=== PATIENT | female | born 1955 | race Caucasian/White ===

== ENCOUNTER 2017-08-14 15:20 | Observation (INO) | payer OTHER ==
[~2017-08-14] VITALS: Ht 162.6 cm; Wt 89.3 kg
[2017-08-14 16:02] LABS: HEMATOCRIT 39.3 % (36.0-46.0); HEMOGLOBIN 13.5 G/DL (11.9-15.5); MCH 31.4 PG (29.0-34.0); MCHC 34.4 G/DL (30.0-36.0); MCV 91.4 FL (83-99); PLATELET COUNT 290 K/uL (156-360); RBC DIS.WIDTH-CV 11.7 % (11.8-14.6); RBC DIS.WIDTH-SD 39.3 % (39-53); WHITE BLOOD COUNT 9.4 K/uL (4.1-10.2)
[2017-08-14 16:14] LABS: CHLORIDE 107 mEq/L (99-109); POTASSIUM 3.8 mEq/L (3.7-5.4); SODIUM 141 mEq/L (136-147)
[2017-08-14 16:16] LABS: GLUCOSE 107 mg/dL (70-99)
[2017-08-14 16:20] LABS: CREATININE 0.8 mg/dL (0.6-1.3); GFR ESTIMATE (CALCULATED) > 59 mL/min/
[2017-08-14 16:21] LABS: UREA NITROGEN (BUN) 18 mg/dL (9-23)
[2017-08-14 16:30] LABS: TROP-I INTERPRETATION NEGATIVE; TROPONIN-I < 0.01 ng/mL (0.0-0.30)
[2017-08-14] MEDS ORDERED: GLUCOTROL XL5 MG PO (16:33)
[2017-08-14] MEDS ORDERED: PRAVACHOL20 MG PO (16:33)
[2017-08-14] MEDS ORDERED: ALEVE220 MG PO (16:34)
[2017-08-14] MEDS ORDERED: [UNRECOGNIZED DRUG - OTHER] PO (16:35)
[2017-08-14 20:10] LABS: HDL CHOLESTEROL 43 MG/DL (Desirable>=50); LDL CHOLESTEROL 90 mg/dL (Desirable<100); NON-HDL CHOLESTEROL 118 mg/dL (Desirable<160); TOTAL CHOLESTEROL 161 mg/dL (Desirable<200); TRIGLYCERIDES 140 MG/DL (Normal: <150)
[2017-08-14 20:24] VITALS: BP 197/83
[2017-08-14 20:45] VITALS: BP 176/86
[2017-08-14 22:24] LABS: TOTAL BILIRUBIN 0.3 MG/DL (0.0-1.0)
[2017-08-14 22:31] LABS: ALKALINE PHOSPHATASE 77 IU/L (3-129); ALT (GPT) 15 IU/L (3-49); AST (GOT) 20 IU/L (2-34); TOTAL PROTEIN 7.3 G/DL (6.4-8.3)
[2017-08-14 22:37] LABS: TROP-I INTERPRETATION NEGATIVE; TROPONIN-I < 0.01 ng/mL (0.0-0.30)
[2017-08-15] VITALS: BP 135/63
[2017-08-15 03:59] VITALS: BP 118/57
[2017-08-15 05:48] LABS: HEMATOCRIT 39.8 % (36.0-46.0); HEMOGLOBIN 13.5 G/DL (11.9-15.5); MCH 31.2 PG (29.0-34.0); MCHC 33.9 G/DL (30.0-36.0); MCV 91.9 FL (83-99); PLATELET COUNT 276 K/uL (156-360); RBC DIS.WIDTH-CV 11.8 % (11.8-14.6); RBC DIS.WIDTH-SD 39.9 % (39-53); RED BLOOD COUNT 4.33 M/uL (3.80-5.20); WHITE BLOOD COUNT 10.2 K/uL (4.1-10.2)
[2017-08-15 06:20] LABS: TROP-I INTERPRETATION NEGATIVE; TROPONIN-I < 0.01 ng/mL (0.0-0.30)
[2017-08-15 06:22] LABS: CHLORIDE 109 MEQ/L (99-109); CREATININE 0.7 MG/DL (0.6-1.3); GFR ESTIMATE (CALCULATED) > 59 mL/min/; GLUCOSE 129 mg/dL (70-99); SODIUM 144 MEQ/L (136-147); UREA NITROGEN (BUN) 16 mg/dL (9-23)
[2017-08-15 07:17] VITALS: BP 165/72
[2017-08-15 09:39] LABS: HEMOGLOBIN A1c (GLYCOHEMOGLOB) 6.4 % (Below 5.7)
[2017-08-15 11:14] VITALS: BP 135/7
[2017-08-15] MEDS ORDERED: NIFEDIPINE ER30 MG PO (12:46)
== END 2017-08-15 13:18 | disposition home or self-care (01) ==
LOC: EME 15:20 → EDOF 19:21 → 5WEST 19:21 → EDOF 19:21 → ENRESERV 19:24 → 5WEST 20:10 → ENPENDDIS 08-15 13:12 → 5WEST 08-15 13:18
PROVIDERS: Emergency Medicine; Hospitalist
DX: R55 Syncope and collapse (principal); I10 Essential (primary) hypertension; R79.89 Other specified abnormal findings of blood chemistry; R07.89 Other chest pain; H53.8 Other visual disturbances; E11.9 Type 2 diabetes mellitus without complications; E78.5 Hyperlipidemia, unspecified; Z90.49 Acquired absence of other specified parts of digestive tract; Z90.710 Acquired absence of both cervix and uterus; Z80.0 Family history of malignant neoplasm of digestive organs
CPT/HCPCS: 70450; 71046; 80048; 80061; 80076; 82948; 83036; 84484; 85027; 93005; 93880; 99281; 99285; G0378; J0780; J1200